=== PATIENT | female | born 1970 | race Caucasian/White ===

== ENCOUNTER → 2016-07-14 | Outpatient (CLI) | payer OTHER | END | disposition disaster alternative care site (69) | LOC: GBCOE 07:27 | DX: Z12.31 Encounter for screening mammogram for malignant neoplasm of breast (principal) | CPT/HCPCS: G0202 ==

== ENCOUNTER → 2016-08-23 | Outpatient (CLI) | payer OTHER ==
--- NOTE | ~2016-08-23 | PUL ---
PATIENT'S NAME: EUSEBIA DAVENPORT [facility] AGE: 45 Y [address] ROOM: [place] [id number] LOCATION: [facility] ADMIT DATE: 08/23/2016 Pulmonary DISCHARGE DATE: FAMILY PHYSICIAN: RUDOLPH RIVERA MD ATTENDING PHYSICIAN: RUDOLPH RIVERA NAME OF PROCEDURE: Home Sleep Study DATE OF PROCEDURE: 08/23/16 TECH: Crystal Colon [facility] SUMMARY: Patient underwent home sleep testing using a type III device and was studied for 7 hours 10 minutes. In that time there were 19 apneas and 33 hypopneas for an apnea/hypopnea index mildly elevated at 7.2 events per hour. The supine AHI was 9.6 events per hour. Oxygen saturations ranged from 85-93%. Heart rate ranged from 51-101 beats per minute. IMPRESSION: Mild predominantly positional obstructive sleep apnea. PLAN: Patient will receive results from the ordering provider. MD KETURAH CARRASQUILLO/ /[id number] dtt: 09/01/16 0838 Vy David E. dtd: 08/29/16 1703
== END | disposition disaster alternative care site (69) ==
LOC: GSLP 14:15
DX: G47.10 Hypersomnia, unspecified (principal); G47.33 Obstructive sleep apnea (adult) (pediatric); G47.9 Sleep disorder, unspecified
CPT/HCPCS: G0399

== ENCOUNTER → 2016-10-05 | Outpatient (CLI) | payer OTHER | END | disposition disaster alternative care site (69) | LOC: GRAD 09:30 | DX: R51 Headache (principal) ==

== ENCOUNTER 2016-10-17 22:29 | Emergency (ER) | payer OTHER ==
--- NOTE | ~2016-10-17 | ER ---
PATIENT'S NAME: EUSEBIA DAVENPORT [facility] AGE: 46 Y [address] ROOM: [place] [address] LOCATION: [facility] ADMIT DATE: 10/17/2016 ER/Outpatient Report DISCHARGE DATE: 10/17/2016 FAMILY PHYSICIAN: , Tiffanie ATTENDING PHYSICIAN: Jesusita Luz HISTORY OF PRESENT ILLNESS: A 46-year-old female, who presents today with bilateral leg injury. The patient says that she rode her feet and fell while she was walking down the stairs, only fell a few steps. Has pain of the right griffith and also the lateral ankle on the left foot and fifth metatarsal of the left foot. This happened just prior to coming in. She was able to bear weight. She was able to walk on it. Initially, she has not taken anything for pain yet though. No numbness or tingling. No other complaints. PAST MEDICAL HISTORY: Includes depression. PAST SURGICAL HISTORY: Includes cholecystectomy, thyroidectomy, hysterectomy and C5-C6 fusion. SOCIAL HISTORY: She smokes 1 pack per day for last 30 years. Does not drink alcohol. Does not use any drugs. MEDICATIONS: Please see med list. ALLERGIES: AUGMENTIN. REVIEW OF SYSTEMS: Reviewed by me and negative with the exception of those discussed in HPI. PHYSICAL EXAMINATION: VITAL SIGNS: She is 5 feet 6 inches. She weighs 120.5 kilos, blood pressure 159/52, heart rate 84, respiratory rate 18, temperature 98.2, and saturating 100% on room air. GENERAL: The patient is well. She was able to walk from her car to her wheelchair. She sitting in stretcher. She looks mildly uncomfortable, but nontoxic. EXTREMITIES: Her lower extremities on the right griffith, she has fairly large bruise and abrasion that is maybe 3 cm x 4 cm. Tender on palpation. She does have pedal pulses on that side that are strong. It does not look deformed. On the left foot, she has tenderness of the left lateral ankle and tenderness PATIENT'S NAME: EUSEBIA DAVENPORT [facility] AGE: 46 Y [address] ROOM: [place] [address] LOCATION: [facility] ADMIT DATE: 10/17/2016 ER/Outpatient Report DISCHARGE DATE: 10/17/2016 FAMILY PHYSICIAN: Physician, Unknown ATTENDING PHYSICIAN: Jesusita Luz at the base of the fifth metatarsal and the distal metatarsal as well. She is able to dorsiflex and plantarflex that ankle and she has good pulses in that one as well. There is an abrasion on it, but no obvious laceration. EMERGENCY ROOM COURSE: X-rays were done. I reviewed the x-ray of her tib-fib on the right, nothing is broken. On the left, she does not have a Allen or Pseudo-Allen fracture. There is what looks like some lucency at the distal metatarsal, but she is not really tender when I push on there either though. Her ankle is within normal limits on that side. We put the patient in a boot. I gave her script for some tramadol. She has crutches at home and she will follow up with her primary care doctor. She understands the reasons to come back to the ER sooner. IMPRESSION: Leg, ankle injury. MD MONTSERRAT CARRILLO/yulissa /[id number] d: 10/18/16423 t: 10/20/161952, OUTPATIENT REPORT
== END 2016-10-17 23:23 | disposition disaster alternative care site (69) ==
LOC: GACC 22:29
DX: S80.11XA Contusion of right lower leg, initial encounter (principal); S90.512A Abrasion, left ankle, initial encounter; F32.9 Major depressive disorder, single episode, unspecified; Z90.89 Acquired absence of other organs; Z90.49 Acquired absence of other specified parts of digestive tract; Z90.710 Acquired absence of both cervix and uterus; Z98.1 Arthrodesis status; F17.210 Nicotine dependence, cigarettes, uncomplicated; Z88.0 Allergy status to penicillin; Z79.3 Long term (current) use of hormonal contraceptives; W10.9XXA Fall (on) (from) unspecified stairs and steps, initial encounter; Y93.01 Activity, walking, marching and hiking; Y99.8 Other external cause status